=== PATIENT | male | born 1995 | race Caucasian/White ===

== ENCOUNTER 2022-11-29 13:31 | Emergency (ER) | payer SELFPAY ==
[2022-11-29] MEDS ORDERED: Acetaminophen 500 MG TAB ONE (14:52)
[2022-11-29] MEDS ORDERED: Bacitracin 1 PK ONE (14:53)
== END 2022-11-29 15:10 | disposition home or self-care (01) ==
LOC: CSHERS 13:31
DX: S01.01XD Laceration without foreign body of scalp, subsequent encounter (principal); W18.30XD Fall on same level, unspecified, subsequent encounter

== ENCOUNTER 2023-03-21 11:20 | Inpatient (IN) | payer SELFPAY ==
[2023-03-21 12:24] LABS: Acetaminophen Less than 10 mcg/mL (10.0-30.0); Alcohol Less than 10.0 mg/dL (Less than 10); Lipase 388 U/L (8-78); Magnesium 2.2 mg/dL (1.6-2.6); Salicylate Less than 8.0 mg/dL (15.0-30.0)
[2023-03-21 12:25] LABS: ALT (SGPT) 88 U/L (8-55); AST (SGOT) 184 U/L (5-34); Albumin 4.9 g/dL (3.5-5.0); Alkaline Phosphatase 216 U/L (40-110); Anion Gap 33 mmol/L (10-20); BUN (Urea Nitrogen) 31 mg/dL (8.9-20.6); Bilirubin, Total 10.1 mg/dL (0.2-1.2); Calc. Creatinine Clearance 0 mL/min (70-130); Carbon Dioxide 23 mmol/L (22-29); Chloride 80 mmol/L (98-107); Estimated GFR 68; Globulin 3.5 g/dL (2.4-3.5); Glucose 111 mg/dL (70-105); Potassium 3.7 mmol/L (3.5-5.1); Protein, Total 8.4 g/dL (6.0-8.3); Sodium 132 mmol/L (136-145)
[2023-03-21 12:26] LABS: #Eosinphils 0.3 10x3/uL (0.0-0.5); #Monocytes 1.1 10x3/uL (0.0-1.1); #Neutrophils 9.5 10x3/uL (1.5-8.4); %Basophils 0.2 % (0.0-2.0); %Eosinophils 2.2 % (0.0-6.0); %Lymphocytes 4.2 % (18.0-47.0); %Monocytes 9.2 % (0.0-10.0); %Neutrophils 83.8 % (40.0-75.0); Hematocrit 43.9 % (38.8-50.0); Hemoglobin 15.5 g/dL (13.5-17.5); Mean Corpuscular HGB CONC 35.3 g/dL (32.0-36.0); Mean Corpuscular Hemoglobin 31.4 pg (27.0-33.0); Mean Corpuscular Volume 88.9 fl (81.2-95.1); RBC Distribution Width 14.4 % (11.5-14.5); Red Blood Cell (RBC) Count 4.94 10x6/uL (4.32-5.72); White Blood Cell (WBC) Count 11.4 10x3/uL (3.5-10.5)
[2023-03-21 12:27] LABS: Mean Platelet Volume 12.6 fl (7.4-10.4); Platelet Count 50 10x3/uL (150-450)
[2023-03-21] MEDS ORDERED: Morphine 4 MG/ML VIAL ONE ×2 (13:21→16:17)
[2023-03-21] MEDS ORDERED: Ondansetron PF 4 MG/2 ML Vial ONE (13:21)
[2023-03-21 13:27] LABS: Platelet Adequacy Comment Platelets Decreased
[2023-03-21 13:28] LABS: RBC Morph Comment Within Normal Limits
[2023-03-21 13:41] LABS: Bilirubin 6 (Negative); Clarity Clear (Clear); Glucose, Urine (Dipstick) Normal (Negative); Specific Gravity, Urine 1.015 (1.005-1.030)
[2023-03-21 13:49] LABS: Amphetamine Not Detected (NotDetected); Barbiturates Screen Not Detected (NotDetected); Benzodiazepine Screen Not Detected (NotDetected); Cocaine Metabolite Screen Not Detected (NotDetected); Methadone Not Detected (NotDetected); Methamphetamine Not Detected (NotDetected); Opiate Screen Not Detected (NotDetected); Oxycodone Screen Not Detected (NotDetected); Phencyclidine (PCP) Not Detected (NotDetected); THC/Cannabinoid Screen Not Detected (NotDetected); Tricyclic Screen Not Detected (NotDetected)
[2023-03-21 13:53] LABS: Blood, Urine Unable to Interpret (Negative); Ketone, Urine Unable to Interpret mg/dL (Negative); Leukocyte Unable to Interpret (Negative); Nitrite Unable to Interpret (Negative); Protein, Urine (Dipstick) Unable to Interpret mg/dl (Neg-Trace)
[2023-03-21 14:06] LABS: CAUTI Indications for Culture Dysuria,urgency,freq; RBC/HPF 0-3 HPF (0-3); Squamous Epithelial 0-3 HPF (0-3); WBC/HPF 0-3 HPF (0-3)
[2023-03-21 14:07] LABS: Bacteria/HPF None Seen HPF (None Seen); Urine Culture Reflex No No
[2023-03-21] MEDS ORDERED: Acetaminophen 325 MG TAB PO PRN (14:57)
[2023-03-21] MEDS ORDERED: Lorazepam 2 MG/ML VIAL IM PRN (14:59)
[2023-03-21] MEDS ORDERED: Electrolyte Replacement Protocol 1 EACH FS SCH (15:00)
[2023-03-21] MEDS ORDERED: Sodium Chloride 0.9% 1,000 ML IV SCH ×2 (15:00→18:00)
[2023-03-21] MEDS ORDERED: Iopamidol 300 61% 100 ML VIAL FS ONE (16:19)
[2023-03-21] MEDS ORDERED: Folic Acid 1 MG TAB PO SCH (18:00)
[2023-03-21] MEDS ORDERED: Multivit, Therapeutic 1 TAB PO SCH (18:00)
[2023-03-21] MEDS ORDERED: Pantoprazole 40 MG VIAL IVP SCH (18:00)
[2023-03-21 18:18] VITALS: BMI 26.2
[2023-03-21] MEDS: Ondansetron PF 4 MG/2 ML Vial IVP PRN (18:34)
[2023-03-21] MEDS: Thiamine HCl 200 MG/2 ML VIAL SLOW IVP SCH (18:34)
[2023-03-21] MEDS: Morphine 4 MG/ML VIAL SLOW IVP PRN ×2 (18:35→21:42)
[2023-03-21] MEDS ORDERED: Heparin 5,000 UNITS/ML VIAL SC SCH (21:00)
[2023-03-21] MEDS ORDERED: KEPPRA PO SCH (21:15)
[2023-03-21] MEDS ORDERED: Gabapentin 100 MG CAP PO SCH (21:15)
[2023-03-21] MEDS ORDERED: levETIRAcetam 500 MG TAB PO SCH (21:30)
[2023-03-21] MEDS: Sodium Chloride 0.9% 1,000 ML IV SCH (22:57)
[2023-03-21] MEDS: Lorazepam 1 MG TAB PO PRN (23:03)
[2023-03-22] MEDS: Sodium Chloride 0.9% 1,000 ML IV SCH ×4 (01:06→14:32)
[2023-03-22] MEDS: Ondansetron PF 4 MG/2 ML Vial IVP PRN ×3 (01:07→21:55)
[2023-03-22] MEDS: Morphine 4 MG/ML VIAL SLOW IVP PRN ×5 (01:56→21:55)
[2023-03-22 03:50] LABS: INR-International Normal Ratio 1.2
[2023-03-22 04:04] LABS: #Monocytes 0.6 10x3/uL (0.0-1.1); #Neutrophils 5.7 10x3/uL (1.5-8.4); %Basophils 0.4 % (0.0-2.0); %Eosinophils 0.5 % (0.0-6.0); %Lymphocytes 13.1 % (18.0-47.0); %Monocytes 8.6 % (0.0-10.0); %Neutrophils 77.1 % (40.0-75.0); Hematocrit 39.2 % (38.8-50.0); Hemoglobin 13.6 g/dL (13.5-17.5); Mean Corpuscular HGB CONC 34.7 g/dL (32.0-36.0); Mean Corpuscular Hemoglobin 30.8 pg (27.0-33.0); Mean Corpuscular Volume 88.9 fl (81.2-95.1); Mean Platelet Volume 12.9 fl (7.4-10.4); Platelet Count 30 10x3/uL (150-450); RBC Distribution Width 14.6 % (11.5-14.5); Red Blood Cell (RBC) Count 4.41 10x6/uL (4.32-5.72); White Blood Cell (WBC) Count 7.4 10x3/uL (3.5-10.5)
[2023-03-22 04:22] LABS: ALT (SGPT) 83 U/L (8-55); AST (SGOT) 217 U/L (5-34); Albumin 3.9 g/dL (3.5-5.0); Alkaline Phosphatase 163 U/L (40-110); Anion Gap 19 mmol/L (10-20); BUN (Urea Nitrogen) 13 mg/dL (8.9-20.6); Calc. Creatinine Clearance 159 mL/min (70-130); Calcium 8.9 mg/dL (7.8-10.44); Carbon Dioxide 29 mmol/L (22-29); Chloride 89 mmol/L (98-107); Estimated GFR 119; Globulin 2.7 g/dL (2.4-3.5); Glucose 77 mg/dL (70-105); Protein, Total 6.6 g/dL (6.0-8.3); Sodium 134 mmol/L (136-145)
[2023-03-22 04:25] LABS: Large Platelets SLIGHT (None Seen); Platelet Adequacy Comment Appears Increased
[2023-03-22] MEDS ORDERED: Potassium Chloride 20 MEQ TAB PO SCH (08:00)
[2023-03-22] MEDS ORDERED: FLU VACC QS2023-24(6MOS UP)/PF 60 MCG/0.5 ML SYRINGE IM ONE (09:00)
[2023-03-22] MEDS: Multivit, Therapeutic 1 TAB PO SCH (09:30)
[2023-03-22] MEDS: Folic Acid 1 MG TAB PO SCH (09:30)
[2023-03-22] MEDS: Pantoprazole 40 MG VIAL IVP SCH (09:30)
[2023-03-22] MEDS ORDERED: Escitalopram Oxalate 10 mg Tablet PO SCH (11:15)
[2023-03-22] MEDS: Amoxicillin/Potassium Clav 875 MG TAB PO SCH (13:25)
[2023-03-22] MEDS: Lorazepam 1 MG TAB PO PRN (13:25)
[2023-03-22] MEDS: Thiamine HCl 200 MG/2 ML VIAL SLOW IVP SCH (18:31)
[2023-03-22] MEDS: levETIRAcetam 500 MG TAB PO SCH (21:42)
[2023-03-22] MEDS: Gabapentin 100 MG CAP PO SCH (21:42)
[2023-03-23] MEDS: Sodium Chloride 0.9% 1,000 ML IV SCH ×2 (01:09→10:27)
[2023-03-23] MEDS: Amoxicillin/Potassium Clav 875 MG TAB PO SCH ×2 (02:07→12:21)
[2023-03-23] MEDS: Lorazepam 1 MG TAB PO PRN ×2 (02:25→14:03)
[2023-03-23] MEDS: Morphine 4 MG/ML VIAL SLOW IVP PRN ×3 (04:01→19:06)
[2023-03-23 04:36] LABS: #Eosinphils 0.1 10x3/uL (0.0-0.5); #Monocytes 0.5 10x3/uL (0.0-1.1); #Neutrophils 3.3 10x3/uL (1.5-8.4); %Basophils 0.8 % (0.0-2.0); %Eosinophils 1.6 % (0.0-6.0); %Lymphocytes 20.5 % (18.0-47.0); %Monocytes 9.4 % (0.0-10.0); %Neutrophils 67.1 % (40.0-75.0); Hematocrit 36.7 % (38.8-50.0); Hemoglobin 12.4 g/dL (13.5-17.5); Mean Corpuscular HGB CONC 33.8 g/dL (32.0-36.0); Mean Corpuscular Hemoglobin 30.7 pg (27.0-33.0); Mean Corpuscular Volume 90.8 fl (81.2-95.1); Platelet Count 24 10x3/uL (150-450); RBC Distribution Width 14.5 % (11.5-14.5); Red Blood Cell (RBC) Count 4.04 10x6/uL (4.32-5.72); White Blood Cell (WBC) Count 4.9 10x3/uL (3.5-10.5)
[2023-03-23 04:38] LABS: ALT (SGPT) 94 U/L (8-55); AST (SGOT) 207 U/L (5-34); Albumin 3.5 g/dL (3.5-5.0); Alkaline Phosphatase 159 U/L (40-110); Anion Gap 14 mmol/L (10-20); BUN (Urea Nitrogen) 5 mg/dL (8.9-20.6); Bilirubin, Total 10.8 mg/dL (0.2-1.2); Calc. Creatinine Clearance 178 mL/min (70-130); Carbon Dioxide 28 mmol/L (22-29); Chloride 96 mmol/L (98-107); Estimated GFR 123; Globulin 2.8 g/dL (2.4-3.5); Glucose 92 mg/dL (70-105); Protein, Total 6.3 g/dL (6.0-8.3); Sodium 135 mmol/L (136-145)
[2023-03-23 04:46] LABS: Large Platelets SLIGHT (None Seen); Platelet Adequacy Comment Appears Decreased
[2023-03-23 04:47] LABS: RBC Morph Comment Within Normal Limits
[2023-03-23] MEDS ORDERED: Potassium Chloride 20 MEQ TAB PO SCH (08:00)
[2023-03-23] MEDS: Ondansetron PF 4 MG/2 ML Vial IVP PRN (08:39)
[2023-03-23] MEDS: levETIRAcetam 500 MG TAB PO SCH ×2 (08:41→22:48)
[2023-03-23] MEDS: Multivit, Therapeutic 1 TAB PO SCH (08:41)
[2023-03-23] MEDS: Gabapentin 100 MG CAP PO SCH ×2 (08:41→22:48)
[2023-03-23] MEDS: Escitalopram Oxalate 10 mg Tablet PO SCH (08:41)
[2023-03-23] MEDS: Folic Acid 1 MG TAB PO SCH (08:42)
[2023-03-23] MEDS: Pantoprazole 40 MG VIAL IVP SCH (08:42)
[2023-03-23] MEDS ORDERED: traMADol HCl 50 MG TAB PO PRN (11:22)
[2023-03-23] MEDS: HYDROcodone/Acetaminophen 5/325 mg Tablet PO PRN ×2 (12:30→22:47)
[2023-03-23] MEDS ORDERED: Lorazepam 1 MG TAB PO PRN (14:59)
[2023-03-23] MEDS: Thiamine HCl 200 MG/2 ML VIAL SLOW IVP SCH (18:17)
[2023-03-24] MEDS: Amoxicillin/Potassium Clav 875 MG TAB PO SCH ×2 (02:00→11:13)
[2023-03-24] MEDS: Morphine 4 MG/ML VIAL SLOW IVP PRN (02:49)
[2023-03-24] MEDS: Ondansetron PF 4 MG/2 ML Vial IVP PRN ×3 (02:50→18:04)
[2023-03-24] MEDS: Sodium Chloride 0.9% 1,000 ML IV SCH ×3 (02:51→16:37)
[2023-03-24 04:05] LABS: INR-International Normal Ratio 1.2
[2023-03-24 04:19] LABS: ALT (SGPT) 101 U/L (8-55); AST (SGOT) 171 U/L (5-34); Albumin 3.5 g/dL (3.5-5.0); Alkaline Phosphatase 172 U/L (40-110); Anion Gap 13 mmol/L (10-20); BUN (Urea Nitrogen) 4 mg/dL (8.9-20.6); Bilirubin, Total 9.4 mg/dL (0.2-1.2); Calc. Creatinine Clearance 185 mL/min (70-130); Calcium 8.9 mg/dL (7.8-10.44); Carbon Dioxide 27 mmol/L (22-29); Chloride 99 mmol/L (98-107); Estimated GFR 124; Globulin 2.6 g/dL (2.4-3.5); Glucose 90 mg/dL (70-105); Potassium 3.4 mmol/L (3.5-5.1); Protein, Total 6.1 g/dL (6.0-8.3); Sodium 136 mmol/L (136-145)
[2023-03-24 04:41] LABS: #Basophils 0.1 10x3/uL (0.0-0.2); #Eosinphils 0.2 10x3/uL (0.0-0.5); #Monocytes 0.7 10x3/uL (0.0-1.1); #Neutrophils 3.4 10x3/uL (1.5-8.4); %Basophils 0.9 % (0.0-2.0); %Eosinophils 3.7 % (0.0-6.0); %Lymphocytes 20.1 % (18.0-47.0); %Monocytes 12.6 % (0.0-10.0); %Neutrophils 62.5 % (40.0-75.0); Hematocrit 37.6 % (38.8-50.0); Hemoglobin 12.7 g/dL (13.5-17.5); Mean Corpuscular HGB CONC 33.8 g/dL (32.0-36.0); Mean Corpuscular Hemoglobin 31.1 pg (27.0-33.0); Mean Corpuscular Volume 92.2 fl (81.2-95.1); Platelet Count 35 10x3/uL (150-450); RBC Distribution Width 14.7 % (11.5-14.5); Red Blood Cell (RBC) Count 4.08 10x6/uL (4.32-5.72); White Blood Cell (WBC) Count 5.5 10x3/uL (3.5-10.5)
[2023-03-24 05:43] LABS: Platelet Adequacy Comment Platelets Decreased; RBC Morph Comment Within Normal Limits
[2023-03-24] MEDS ORDERED: Potassium Chloride 20 MEQ TAB PO SCH ×2 (08:00→17:15)
[2023-03-24] MEDS: Gabapentin 100 MG CAP PO SCH ×2 (08:48→21:50)
[2023-03-24] MEDS: Folic Acid 1 MG TAB PO SCH (08:49)
[2023-03-24] MEDS: Thiamine 100 MG TAB PO SCH (08:49)
[2023-03-24] MEDS: Multivit, Therapeutic 1 TAB PO SCH (08:49)
[2023-03-24] MEDS: Pantoprazole 40 MG VIAL IVP SCH (08:49)
[2023-03-24] MEDS: levETIRAcetam 500 MG TAB PO SCH ×2 (08:50→21:50)
[2023-03-24] MEDS: Escitalopram Oxalate 10 mg Tablet PO SCH (08:50)
[2023-03-24] MEDS: Morphine 2 MG/ML VIAL SLOW IVP PRN ×3 (08:58→18:03)
[2023-03-24] MEDS ORDERED: Lorazepam 0.5 MG TAB PO PRN (14:59)
[2023-03-24 15:20] LABS: Potassium 3.5 mmol/L (3.5-5.1)
[2023-03-24] MEDS: HYDROcodone/Acetaminophen 5/325 mg Tablet PO PRN (21:40)
[2023-03-24 23:11] LABS: Potassium 3.9 mmol/L (3.5-5.1)
[2023-03-25] MEDS: Amoxicillin/Potassium Clav 875 MG TAB PO SCH ×2 (00:18→13:26)
[2023-03-25] MEDS: Morphine 2 MG/ML VIAL SLOW IVP PRN ×5 (00:20→18:31)
[2023-03-25] MEDS: Ondansetron PF 4 MG/2 ML Vial IVP PRN ×2 (00:20→06:27)
[2023-03-25] MEDS: Sodium Chloride 0.9% 1,000 ML IV SCH ×2 (03:10→13:26)
[2023-03-25] MEDS: Thiamine 100 MG TAB PO SCH (09:17)
[2023-03-25] MEDS: Multivit, Therapeutic 1 TAB PO SCH (09:17)
[2023-03-25] MEDS: Folic Acid 1 MG TAB PO SCH (09:17)
[2023-03-25] MEDS: levETIRAcetam 500 MG TAB PO SCH ×2 (09:17→21:53)
[2023-03-25] MEDS: Escitalopram Oxalate 10 mg Tablet PO SCH (09:17)
[2023-03-25] MEDS: Pantoprazole 40 MG VIAL IVP SCH (09:18)
[2023-03-25] MEDS: Gabapentin 100 MG CAP PO SCH ×2 (09:18→21:52)
[2023-03-26] MEDS: Sodium Chloride 0.9% 1,000 ML IV SCH ×3 (00:58→20:50)
[2023-03-26] MEDS: Morphine 2 MG/ML VIAL SLOW IVP PRN ×2 (00:59→05:52)
[2023-03-26] MEDS: Ondansetron PF 4 MG/2 ML Vial IVP PRN ×2 (00:59→09:32)
[2023-03-26] MEDS: Amoxicillin/Potassium Clav 875 MG TAB PO SCH ×3 (01:31→23:51)
[2023-03-26 06:01] LABS: ALT (SGPT) 84 U/L (8-55); AST (SGOT) 111 U/L (5-34); Albumin 3.6 g/dL (3.5-5.0); Alkaline Phosphatase 187 U/L (40-110); Anion Gap 13 mmol/L (10-20); BUN (Urea Nitrogen) 6 mg/dL (8.9-20.6); Bilirubin, Direct 6.9 mg/dL (0.1-0.3); Bilirubin, Total 9.2 mg/dL (0.2-1.2); Calc. Creatinine Clearance 204 mL/min (70-130); Calcium 9.8 mg/dL (7.8-10.44); Carbon Dioxide 26 mmol/L (22-29); Chloride 98 mmol/L (98-107); Estimated GFR 128; Glucose 94 mg/dL (70-105); Lipase 91 U/L (8-78); Potassium 4.2 mmol/L (3.5-5.1); Protein, Total 6.8 g/dL (6.0-8.3); Sodium 133 mmol/L (136-145)
[2023-03-26 06:24] LABS: Hematocrit 41.2 % (38.8-50.0); Hemoglobin 13.9 g/dL (13.5-17.5); MDiff Complete? YES; Mean Corpuscular HGB CONC 33.7 g/dL (32.0-36.0); Mean Corpuscular Hemoglobin 30.6 pg (27.0-33.0); Mean Corpuscular Volume 90.7 fl (81.2-95.1); Mean Platelet Volume 12.6 fl (7.4-10.4); Platelet Count 86 10x3/uL (150-450); RBC Distribution Width 15.5 % (11.5-14.5); Red Blood Cell (RBC) Count 4.54 10x6/uL (4.32-5.72); White Blood Cell (WBC) Count 6.2 10x3/uL (3.5-10.5)
[2023-03-26 07:24] LABS: Band 10 % (5-11); Eosinophils 4 % (0-10); Monocytes 18 % (0-10); Neutrophil 38 % (42-75)
[2023-03-26 07:25] LABS: Lymphocytes 20 % (21-51)
[2023-03-26 07:26] LABS: RBC Morph Comment Within Normal Limits; Reactive Lymphocytes 10 % (0-10)
[2023-03-26 07:27] LABS: Large Platelets SLIGHT (None Seen); Platelet Adequacy Comment Appears Decreased
[2023-03-26] MEDS: Escitalopram Oxalate 10 mg Tablet PO SCH (08:58)
[2023-03-26] MEDS: Thiamine 100 MG TAB PO SCH (08:58)
[2023-03-26] MEDS: Multivit, Therapeutic 1 TAB PO SCH (08:58)
[2023-03-26] MEDS: levETIRAcetam 500 MG TAB PO SCH ×2 (08:58→20:47)
[2023-03-26] MEDS: Pantoprazole 40 MG VIAL IVP SCH (08:59)
[2023-03-26] MEDS: Gabapentin 100 MG CAP PO SCH ×2 (08:59→20:47)
[2023-03-26] MEDS: Folic Acid 1 MG TAB PO SCH (08:59)
[2023-03-26] MEDS: HYDROcodone/Acetaminophen 5/325 mg Tablet PO PRN ×2 (09:33→20:48)
[2023-03-27] MEDS: Ondansetron PF 4 MG/2 ML Vial IVP PRN (03:27)
[2023-03-27] MEDS: HYDROcodone/Acetaminophen 5/325 mg Tablet PO PRN (06:14)
[2023-03-27] MEDS: Sodium Chloride 0.9% 1,000 ML IV SCH ×2 (06:16→17:16)
[2023-03-27] MEDS ORDERED: Polyethylene Glycol 3350 17 GM Packet PO PRN (06:18)
[2023-03-27 07:36] LABS: Albumin 3.6 g/dL (3.5-5.0); Anion Gap 16 mmol/L (10-20); BUN (Urea Nitrogen) 6 mg/dL (8.9-20.6); Bilirubin, Direct 8.5 mg/dL (0.1-0.3); Bilirubin, Total 11.8 mg/dL (0.2-1.2); Calc. Creatinine Clearance 193 mL/min (70-130); Calcium 9.6 mg/dL (7.8-10.44); Carbon Dioxide 25 mmol/L (22-29); Chloride 99 mmol/L (98-107); Estimated GFR 126; Glucose 85 mg/dL (70-105); Potassium 3.9 mmol/L (3.5-5.1); Protein, Total 6.6 g/dL (6.0-8.3); Sodium 136 mmol/L (136-145)
[2023-03-27 07:37] LABS: ALT (SGPT) 71 U/L (8-55); AST (SGOT) 94 U/L (5-34); Alkaline Phosphatase 206 U/L (40-110)
[2023-03-27 08:03] LABS: Hematocrit 39.4 % (38.8-50.0); Hemoglobin 13.4 g/dL (13.5-17.5); Mean Corpuscular Hemoglobin 30.8 pg (27.0-33.0); Mean Corpuscular Volume 90.6 fl (81.2-95.1); Mean Platelet Volume 13.2 fl (7.4-10.4); Platelet Count 113 10x3/uL (150-450); RBC Distribution Width 16.3 % (11.5-14.5); Red Blood Cell (RBC) Count 4.35 10x6/uL (4.32-5.72); White Blood Cell (WBC) Count 7.4 10x3/uL (3.5-10.5)
[2023-03-27 09:25] LABS: Band 4 % (5-11); Eosinophils 3 % (0-10); Lymphocytes 19 % (21-51); Monocytes 27 % (0-10)
[2023-03-27 09:26] LABS: Giant Platelets SLIGHT HPF (0-5); Large Platelets MODERATE (None Seen); Neutrophil 44 % (42-75); RBC Morph Comment Within Normal Limits
[2023-03-27 09:27] LABS: Platelet Adequacy Comment Appears Decreased; Platelet Clumps SLIGHT
[2023-03-27 09:30] LABS: MDiff Complete? YES
[2023-03-27 09:41] VITALS: TEMP 98.5
[2023-03-27] MEDS: Multivit, Therapeutic 1 TAB PO SCH (09:58)
[2023-03-27] MEDS: levETIRAcetam 500 MG TAB PO SCH (09:58)
[2023-03-27] MEDS: Gabapentin 100 MG CAP PO SCH (09:58)
[2023-03-27] MEDS: Folic Acid 1 MG TAB PO SCH (09:58)
[2023-03-27] MEDS: Escitalopram Oxalate 10 mg Tablet PO SCH (09:59)
[2023-03-27] MEDS: Pantoprazole 40 MG VIAL IVP SCH (09:59)
[2023-03-27] MEDS: Thiamine 100 MG TAB PO SCH (09:59)
[2023-03-27] MEDS: Amoxicillin/Potassium Clav 875 MG TAB PO SCH (11:47)
[2023-03-27 14:08] VITALS: BP 125/80
== END 2023-03-27 17:38 | disposition home or self-care (01) | DRG 432 ==
LOC: CSHERS 11:20 → CSHTELE 17:45
PROVIDERS: ADMIT Internal Medicine; ATTEND Internal Medicine
DX: K70.10 Alcoholic hepatitis without ascites (principal); K85.20 Alcohol induced acute pancreatitis without necrosis or infection; G40.909 Epilepsy, unspecified, not intractable, without status epilepticus; E86.0 Dehydration; K82.4 Cholesterolosis of gallbladder; K76.0 Fatty (change of) liver, not elsewhere classified; K04.7 Periapical abscess without sinus; D69.6 Thrombocytopenia, unspecified; Z71.41 Alcohol abuse counseling and surveillance of alcoholic; Z79.899 Other long term (current) drug therapy
CPT/HCPCS: 36415; 74177; 76705; 80048; 80053; 80076; 80306; 80307; 81001; 83690; 83735; 85025; 85060; 85610; 90471; 90686; 96361; 96374; 96375; 96376; C9113; G0008; J1644; J2270; J2272; J2405; J3411; J7050; Q9967